=== PATIENT | male | born 1990 | race Two or more races ===

== ENCOUNTER 2018-01-16 11:55 | Emergency (ER) | payer OTHER ==
[~2018-01-16] VITALS: Ht 162.6 cm; Wt 56.7 kg
== END 2018-01-16 15:32 | disposition home or self-care (01) ==
LOC: ER 11:55
DX: S61.411A Laceration without foreign body of right hand, initial encounter (principal); W45.8XXA Other foreign body or object entering through skin, initial encounter; Y93.89 Activity, other specified; Y92.69 Other specified industrial and construction area as the place of occurrence of the external cause; Y99.8 Other external cause status